=== PATIENT | female | born 1970 | race Caucasian/White ===

== ENCOUNTER 2019-03-22 10:19 | Emergency (ER) | payer BC, MEDICAID ==
[~2019-03-22] VITALS: Ht 167.6 cm; Wt 57.8 kg
[2019-03-22 10:51] VITALS: BP 112/66
[2019-03-22] MEDS ORDERED: IBUP-1984 PO (11:48)
== END 2019-03-22 12:16 | disposition home or self-care (01) ==
LOC: ER 10:20
DX: S62.616A Displaced fracture of proximal phalanx of right little finger, initial encounter for closed fracture (principal); W23.0XXA Caught, crushed, jammed, or pinched between moving objects, initial encounter; Y93.67 Activity, basketball; Y92.89 Other specified places as the place of occurrence of the external cause; Y99.9 Unspecified external cause status
CPT/HCPCS: 29125; 73140; 99283